=== PATIENT | female | born 1995 | race Caucasian/White ===

== ENCOUNTER 2016-12-17 21:57 | Emergency (ER) | payer BC ==
[~2016-12-17] VITALS: Ht 162.6 cm; Wt 51.3 kg
[2016-12-17 22:07] VITALS: BP 150/98
--- NOTE | 2016-12-17 22:26 | ER.PDOC ---
General Chief Complaint: Female Urogenital Problems Stated Complaint: FEMALE TRAVEL OUT OF US: No Time seen by MD: 22:24 Source: patient History of Present Illness Initial Comments retained tampon Timing/Duration: 1 hour Severity: mild Modifying Factors: improves with cold therapy Allergies: Coded Allergies: No Known Allergies (Unverified , 12/17/16) Past Medical History Medical History: no pertinent history LMP (females 10-50): 1 month Family History Significant Family History: no pertinent family hx Social History Smoking: non-smoker Alcohol Use: none Drug Use: none Review of Systems All Other Systems: Reviewed and Negative Physical Exam General Appearance: No Apparent Distress, WD/WN EENT: eyes nml inspection, nml ENT inspection Neck: Full Range of Motion Respiratory: chest non-tender Gastrointestinal: Normal Bowel Sounds Extremities: Normal Range of Motion Comments fb vagina removed Departure Time of Disposition: 22:25 Disposition: 01 HOME, SELF-CARE Impression: Primary Impression: Retained vaginal foreign body Condition: Stable Referrals: PCP,UNKNOWN (PCP) PRIMARY CARE PROVIDER Additional Instructions: clindamycin MITZI Chishol[address] Dr[address] MD Dec 17, 2016 22:26
== END 2016-12-17 22:32 | disposition home or self-care (01) ==
LOC: ER 21:57
DX: T19.2XXA Foreign body in vulva and vagina, initial encounter (principal); X58.XXXA Exposure to other specified factors, initial encounter; Y93.89 Activity, other specified; Y92.89 Other specified places as the place of occurrence of the external cause; Y99.8 Other external cause status
CPT/HCPCS: 99283